=== PATIENT | female | born 1960 | race Native Hawaiian/Other Pacific Islander ===

== ENCOUNTER 2017-03-16 08:47 | Outpatient (CLI) | payer BC | END 2017-03-16 19:07 | disposition home or self-care (01) | LOC: NM 08:47 | DX: R10.84 Generalized abdominal pain (principal) | CPT/HCPCS: A9537 ==

== ENCOUNTER 2018-06-21 09:38 | Outpatient (CLI) | payer BC | END 2018-06-21 19:13 | disposition home or self-care (01) | LOC: RAD 09:38 | DX: R06.02 Shortness of breath (principal); E11.9 Type 2 diabetes mellitus without complications ==

== ENCOUNTER 2018-10-18 08:51 | Outpatient (CLI) | payer BC | END 2018-10-18 23:17 | disposition home or self-care (01) | LOC: CT 08:51 | DX: M75.42 Impingement syndrome of left shoulder (principal); G56.32 Lesion of radial nerve, left upper limb ==

== ENCOUNTER 2018-11-26 12:47 | Outpatient (CLI) | payer BC | END 2018-11-26 19:47 | disposition home or self-care (01) | LOC: RESP 12:47 | DX: M75.42 Impingement syndrome of left shoulder (principal); G56.32 Lesion of radial nerve, left upper limb ==